=== PATIENT | female | born 1980 | race Caucasian/White ===

== ENCOUNTER 2018-05-29 10:56 | Emergency (ER) | payer OTHER ==
[~2018-05-29] VITALS: Ht 157.4 cm; Wt 75.3 kg
== END 2018-05-29 12:55 | disposition home or self-care (01) ==
LOC: ED 10:56
DX: S00.83XA Contusion of other part of head, initial encounter (principal); W54.1XXA Struck by dog, initial encounter; Y93.89 Activity, other specified; Y92.89 Other specified places as the place of occurrence of the external cause; Y99.8 Other external cause status

== ENCOUNTER → 2023-10-03 | Outpatient (CLI) | payer OTHER | END | disposition home or self-care (01) | LOC: RAD 10:16 | PROVIDERS: ATTEND Chiropractor | DX: S23.41XA Sprain of ribs, initial encounter (principal); R07.89 Other chest pain; X58.XXXA Exposure to other specified factors, initial encounter; Y93.89 Activity, other specified; Y92.89 Other specified places as the place of occurrence of the external cause; Y99.8 Other external cause status ==

== ENCOUNTER → 2025-07-22 | Outpatient (CLI) | payer OTHER ==
[~2025-07-22] MED LIST: CYCLOBENZAPRINE10 MG PO; DECADRON4 MG PO; HYDROCODONE-AC1 EAC1 PO; MIXED AMPHETAMI20 MG PO; PAROXETINE HCL20 MG PO
== END | disposition home or self-care (01) ==
LOC: MRI 04:02
PROVIDERS: ATTEND Internal Medicine
DX: M47.817 Spondylosis without myelopathy or radiculopathy, lumbosacral region (principal); M51.379 Other intervertebral disc degeneration, lumbosacral region without mention of lumbar back pain or lower extremity pain; M54.9 Dorsalgia, unspecified; M25.78 Osteophyte, vertebrae